=== PATIENT | female | born 1975 | race African-American/Black ===

== ENCOUNTER 2024-10-11 18:49 | Emergency (ER) | payer OTHER ==
--- NOTE | 2024-10-11 19:02 | ER ---
Nurse's Notes [facility] Name: Deirdre Moncada Age: 48 yrs Sex: Female : 1975 Arrival Date: 10/11/2024 Time: 18:49 Bed 12 Private MD: Diagnosis: Cellulitis of left lower limb Presentation: 10/11 19:01 Chief complaint: Patient states: redness to left knee. Coronavirus screen: At this aa5 time, the client does not indicate any symptoms associated with coronavirus-19. Ebola Screen: Patient denies travel to an Ebola-affected area in the 21 days before illness onset. Initial Sepsis Screen: Does the patient meet any 2 criteria? No. Patient's initial sepsis screen is negative. Does the patient have a suspected source of infection? No. Patient's initial sepsis screen is negative. Risk Assessment: Do you want to hurt yourself or someone else? Patient reports no desire to harm self or others. Onset of symptoms was September 2024. 19:01 Acuity: ROBINSON 5 aa5 19:01 Method Of Arrival: Ambulatory aa5 Historical: - Allergies: 19:02 No Known Allergies; aa5 - PMHx: 19:02 None; aa5 - PSHx: 19:02 hysterectomy; aa5 - Immunization history:: Adult Immunizations unknown. - Infectious Disease History:: Denies. - Social history:: Smoking status: Patient denies any tobacco usage or history of. Assessment: 19:08 Neuro: Level of Consciousness is awake, alert, obeys commands, Oriented to person, aa5 place, time, situation. Respiratory: Airway is patent Respiratory effort is even, unlabored, Respiratory pattern is regular, symmetrical. Derm: Skin is dry, Skin is normal, Skin temperature is warm. Vital Signs: 19:01 BP 124 / 74; Pulse 70; Resp 16 S; Temp 98.2(O); Pulse Ox 99% on R/A; Weight 85.73 kg aa5 (R); Height 5 ft. 9 in. (R); 19:01 Body Mass Index 27.91 (85.73 kg, 175.26 cm) aa5 ED Course: 18:52 Patient arrived in ED. mr 18:52 [facility] 18:52 Xavier Schwarz MD is Attending Physician. dr5 19:01 Arm band placed on. aa5 19:02 Triage completed. aa5 19:09 No provider procedures requiring assistance completed. Patient did not have IV access aa5 during this emergency room visit. Administered Medications: No medications were administered Outcome: 19:02 Discharge ordered by . dr5 19:09 Discharged to home ambulatory, aa5 19:09 Condition: stable 19:09 Discharge instructions given to patient, Instructed on discharge instructions, follow up and referral plans. medication usage, Demonstrated understanding of instructions, follow-up care, medications, Prescriptions given X 2, 19:10 Patient left the ED. aa5 Signatures: Yakelin Arshad, Reg Reg mr Farrah Tran, RN RN aa5 Leandro Brown, ASSISTANT FINANCE DIRECTOR-C ASSISTANT FINANCE DIRECTOR-Cdr5 Corrections: (The following items were deleted from the chart) 19:08 19:01 Pulse 70bpm; Resp 16bpm; Spontaneous; Pulse Ox 99% RA; Temp 98.2F Oral; 85.73 kg aa5 Reported; Height 5 ft. 9 in. Reported; BMI: 27.9; aa5
--- NOTE | 2024-10-11 19:02 | EDPHYS ---
Physician Documentation [facility] Name: Deirdre Moncada Age: 48 yrs Sex: Female : 1975 Arrival Date: 10/11/2024 Time: 18:49 Bed 12 Private MD: ED Physician Xavier Schwarz HPI: 10/11 19:44 This 48 yrs old Black Female presents to ER via Ambulatory with complaints of Insect dr5 Bite. 19:44 Patient is a 48-year-old female with no past medical history coming in with pain to dr5 left lower leg right above left kneecap. Patient reports that she was bit by an insect yesterday and pain and swelling is increased. Patient denies fever. Historical: - Allergies: 19:02 No Known Allergies; aa5 - PMHx: 19:02 None; aa5 - PSHx: 19:02 hysterectomy; aa5 - Immunization history:: Adult Immunizations unknown. - Infectious Disease History:: Denies. - Social history:: Smoking status: Patient denies any tobacco usage or history of. ROS: 19:44 Constitutional: as per hpi dr5 Exam: 19:44 Constitutional: This is a well developed, well nourished patient who is awake, alert, dr5 and in no acute distress. Head/Face: Normocephalic, atraumatic. Eyes: Pupils equal round and reactive to light, extra-ocular motions intact. Lids and lashes normal. Conjunctiva and sclera are non-icteric and not injected. Cornea within normal limits. Periorbital areas with no swelling, redness, or edema. Neck: Trachea midline, no thyromegaly or masses palpated, and no cervical lymphadenopathy. Supple, full range of motion without nuchal rigidity, or vertebral point tenderness. No Meningismus. Chest/axilla: Normal chest wall appearance and motion. Nontender with no deformity. No lesions are appreciated. Cardiovascular: Regular rate and rhythm with a normal S1 and S2. Normal PMI, no JVD. No pulse deficits. Abdomen/GI: Soft, non-tender, non-distended Neuro: Awake and alert, GCS 15, oriented to person, place, time, and situation. Cranial nerves II-XII grossly intact. Motor strength 5/5 in all extremities. Sensory grossly intact. Cerebellar exam normal. Normal gait. 19:44 Skin: cellulitis, that is minimal, on the above left knee, Vital Signs: 19:01 BP 124 / 74; Pulse 70; Resp 16 S; Temp 98.2(O); Pulse Ox 99% on R/A; Weight 85.73 kg aa5 (R); Height 5 ft. 9 in. (R); 19:01 Body Mass Index 27.91 (85.73 kg, 175.26 cm) aa5 MDM: 19:02 Medical Screening Exam initiated dr5 19:44 Differential diagnosis: abrasion, contusion, fracture, sprain, Cellulitis. Data dr5 reviewed: vital signs, nurses notes. Care significantly affected by the following Social Determinants of Health: Poor access to healthcare and/or lack of insurance, Poor access to transportation, Problems related to employment. Counseling: I had a detailed discussion with the patient and/or guardian regarding the historical points, exam findings, and any diagnostic results supporting the discharge/admit diagnosis, the presence of at least one elevated blood pressure reading (>120/80) during this emergency department visit, the need for outpatient follow up, for definitive care, a family practitioner, to return to the emergency department if symptoms worsen or persist or if there are any questions or concerns that arise at home. ED course: Patient found to have a developing cellulitis above left knee. Full range of motion of left knee. Will give patient antibiotics with strict ER precautions return if fever develops or swelling worsens while on antibiotics. All questions answered. Patient agreeable to plan and will follow-up primary care doctor this week as well.. Administered Medications: No medications were administered Disposition Summary: 10/11/24 19:02 Discharge Ordered Notes: Location: Home dr5 Condition: Stable dr5 Diagnosis - Cellulitis of left lower limb dr5 Followup: dr5 - With: Emergency Department - When: As needed - Reason: Worsening of condition Followup: dr5 - With: Private Physician - When: 1 - 2 days - Reason: Recheck today's complaints, Continuance of care, Re-evaluation by your physician Discharge Instructions: - Discharge Summary Sheet dr5 - Cellulitis, Adult dr5 Forms: - Medication Reconciliation Form dr5 - Antibiotic Education dr5 - Patient Portal Instructions dr5 - Leadership Thank You Letter dr5 Prescriptions: - Cephalexin 500 mg Oral Capsule - take 1 capsule ORAL route every 12 hours for 10 days; 20 capsule; Refills: 0, dr5 Product Selection Permitted - Doxycycline Hyclate 100 mg Oral Tablet - take 1 tablet ORAL route every 12 hours; 20 tablet; Refills: 0, Product dr5 Selection Permitted Addendum: 10/13/2024 15:34 Co-signature as Attending Physician, Xavier Schwarz MD I agree with the assessment and c ricks plan of care. Signatures: Xavier Schwarz, Farrah Avendano MD, cha, RN RN aa5 Leandro Brown, BINDER SELECTOR-C BINDER SELECTOR-Cdr5
[2024-10-11 19:35] VITALS: BP 124/74; TEMP 98.2; O2SAT 99
== END 2024-10-11 19:10 | disposition home or self-care (01) ==
LOC: ER 18:49
DX: L03.116 Cellulitis of left lower limb (principal)
CPT/HCPCS: 99283

== ENCOUNTER 2024-10-13 18:01 | Emergency (ER) | payer OTHER ==
--- OUTSIDE RECORDS SUMMARY | 2024-10-13 18:03 | XMS REPORT | Clinical Summary ---
Author Name Unknown Organization [facility] Address [address] [place] [address] Care Team Providers Care Supervisor [employer] Name Role Phone Jonny White MD Unavailable [phone] Jonny White MD Unavailable [phone] Estefany Teran MD Primary Care Provider [phone] Allergies No known active allergies Medications * This document contains information received from the source organization and may not represent a complete record from that organization. sertraline (ZOLOFT) 100 mg tablet Take 1 tablet by mouth daily. 1 01/08/2018 Active traMADol (ULTRAM) 50 mg tablet Take 50 mg by mouth every 4 (four) hours as needed. Active ibuprofen (ADVIL,MOTRIN) 600 mg tabletIndicatio ns:Intramural leiomyoma of uterus Take 1 tablet (600 mg) by mouth every 6 (six) hours as needed for moderate pain. 30 tablet 1 04/30/2018 Active Active Problems Problem Noted Date Diagnosed Date Pelvic pain 04/16/2018 Menorrhagia 04/15/2018 Leiomyoma of uterus 04/14/2018 Surgical History Surgery Date Site/Laterality Comments TUBAL LIGATION Medical History Medical History Date Comments Migraine Leiomyoma of uterus Family History Medical History Relation Name Comments Lung cancer Maternal Grandmother Relation Name Status Comments Maternal Grandmother Mother Social History Tobacco Use Types Packs/Day Years Used Date Smoking Tobacco: Some Days Cigarettes Smokeless Tobacco: Former Comments:Only weekends/socia lly Alcohol Use Standard Drinks/Week Comments Yes 0 (1 standard drink = 0.6 oz pur e alcohol) Weekends Comments No Sex and Gender Information Value Date Recorded Sex Assigned at Not on file Legal Sex Female 12:20 PM CDT Gender Identity Not on file Sexual Orientation Not on file Obstetrics History Para Term AB IAB SAB Ectopic Multiple Livin g Live Births 3 3 3 Date Outcome GA Total Labor Labor/2nd/3rd Weight Sex Type Anes PTL Sarah A1 A5 Name Clin Para Para Para Plan of Treatment Health Maintenance Due Date Last Done Comments COVID-19 Vaccine (2023-2 5 season) 2024 Influenza Vaccine (#1) 2024 Pneumococcal Vaccine Aged Out No long er eligible based on patient's age to complete this topic Insurance [facility] PPO POS Care Teams Supervisor [employer] Relationship Specialty Start Date End Date Jonny White MD [address] [place] [address] @[employer] PCP - External Follow Up A 04/08/18 04/08/26 Jonny White MD [address] [place] [address] [email or web address] PCP - External Referring 04/08/18 04/08/26 Estefany Teran MD [address] [place] [address] [email or web address] PCP - General Gynecologic Medical Oncology 04/09/18
[2024-10-13] MEDS ORDERED: LIDOCAINE 2% W/EPI 1:200,000 MPF 20 ML VIAL IM ONE (19:37)
--- NOTE | 2024-10-13 20:03 | ER ---
Nurse's Notes [facility] Name: Deirdre Moncada Age: 48 yrs Sex: Female : 1975 Arrival Date: 10/13/2024 Time: 18:01 Bed 10 Private MD: Diagnosis: Cutaneous abscess of left lower limb;Cellulitis of left lower limb Presentation: 10/13 18:25 Chief complaint: Patient states: was seen here a couple days ago for an abscess on her iw left knee area, was started on abx but it is more red and swollen. Coronavirus screen: At this time, the client does not indicate any symptoms associated with coronavirus-19. Ebola Screen: No symptoms or risks identified at this time. Initial Sepsis Screen: Does the patient meet any 2 criteria? No. Patient's initial sepsis screen is negative. Does the patient have a suspected source of infection? No. Patient's initial sepsis screen is negative. Risk Assessment: Do you want to hurt yourself or someone else? Patient reports no desire to harm self or others. Onset of symptoms was October 11, 2024. 18:25 Method Of Arrival: Ambulatory iw 18:25 Acuity: ROBINSON 3 iw Triage Assessment: 21:08 General: Appears in no apparent distress. uncomfortable, Behavior is calm, cooperative, vc1 appropriate for age. Pain: Complains of pain in left knee. Historical: - Allergies: 18:26 No Known Allergies; iw - Home Meds: 18:26 None [Active]; iw - PMHx: 18:26 None; iw - PSHx: 18:26 hysterectomy; iw - Immunization history:: Adult Immunizations up to date. - Infectious Disease History:: Denies. - Social history:: Smoking status: unknown. Screenin:06 [facility] ED Fall Risk Assessment (Adult) History of falling in the last 3 months, vc1 including since admission No falls in past 3 months (0 pts) Confusion or Disorientation No (0 pts) Intoxicated or Sedated No (0 pts) Impaired Gait No (0 pts) Mobility Assist Device Used No (0 pt) Altered Elimination No (0 pt) Score/Fall Risk Level 0 - 2 = Low Risk Oriented to surroundings, Maintained a safe environment, Educated pt \T\ family on fall prevention, incl call for assistance when getting out of bed. Abuse screen: Denies threats or abuse. Nutritional screening: No deficits noted. Tuberculosis screening: No symptoms or risk factors identified. Vital Signs: 18:25 BP 131 / 89; Pulse 82; Resp 16; Temp 98.3; Pulse Ox 99% on R/A; Weight 85.73 kg; Height iw 5 ft. 9 in. ; Pain 9/10; 18:25 Body Mass Index 27.91 (85.73 kg, 175.26 cm) iw 18:25 Pain Scale: Adult iw ED Course: 18:03 Patient arrived in ED. mr 18:03 Justus Lama MD is Attending Physician. ec2 18:26 Triage completed. iw 18:26 Arm band placed on. iw 20:03 Nicolle Carbajal RN is Primary Nurse. vc1 21:07 Patient has correct armband on for positive identification. Provided Education on: f/u vc1 with PCP. 21:07 No provider procedures requiring assistance completed. Patient did not have IV access vc1 during this emergency room visit. Administered Medications: 20:03 Drug: Lidocaine-Epinephrine Infiltration -2 % (1:100,000) 10 ml Infiltration once; to vc1 bedside {Note: administered by Dr. Lama.} Route: Infiltration; 20:47 Drug: Ketorolac IM 30 mg IM once Route: IM; Site: right deltoid; vc1 21:07 Follow up: Response: No adverse reaction; Marked relief of symptoms vc1 Medication: 21:07 VIS not applicable for this client. vc1 Outcome: 20:02 Discharge ordered by . ec2 21:07 Discharged to home ambulatory, with friend, vc1 21:07 Condition: stable 21:07 Discharge instructions given to patient, Instructed on discharge instructions, follow up and referral plans. wound care, Demonstrated understanding of instructions, follow-up care, wound care, 21:08 Patient left the ED. vc1 Signatures: Yakelin Arshad, Reg Jame mr Stephy Leong RN RN Nicolle Carbajal RN RN vc1 Justus Lama MD MD 2
--- NOTE | 2024-10-13 20:03 | EDPHYS ---
Physician Documentation [facility] Name: Deirdre Moncada Age: 48 yrs Sex: Female : 1975 Arrival Date: 10/13/2024 Time: 18:01 Bed 10 Private MD: ED Physician Justus Lama HPI: 10/13 18:29 This 48 yrs old Black Female presents to ER via Ambulatory with complaints of Abscess. ec2 18:29 Patient arrives today for abscess formation to the left knee. Patient reports that she ec2 was recently diagnosed with cellulitis, prescribed doxycycline and Keflex, reports that she is having some swelling to the knee and the infection has come to a point. Reports some whiteness. Patient reports no fevers, no vomiting, no diarrhea. Reports she is taking her medications, taking them twice.. Historical: - Allergies: 18:26 No Known Allergies; iw - Home Meds: 18:26 None [Active]; iw - PMHx: 18:26 None; iw - PSHx: 18:26 hysterectomy; iw - Immunization history:: Adult Immunizations up to date. - Infectious Disease History:: Denies. - Social history:: Smoking status: unknown. ROS: 18:30 Constitutional: as per hpi ec2 Exam: 18:30 Constitutional: GEN: NAD Head: atraumatic Eyes: EOMI Ears: External ears are ec2 normal. CV: regular rate LUNGS: no respiratory distress ABD: non-distended SKIN: Left knee with erythema, small approximately 1 x 1 cm abscess formation MSK: no evidence of trauma Vital Signs: 18:25 BP 131 / 89; Pulse 82; Resp 16; Temp 98.3; Pulse Ox 99% on R/A; Weight 85.73 kg; Height iw 5 ft. 9 in. ; Pain 9/10; 18:25 Body Mass Index 27.91 (85.73 kg, 175.26 cm) iw 18:25 Pain Scale: Adult iw Procedures: 20:03 I \T\ D: Incision and drainage was performed for an abscess of the left Prepped with ec2 alcohol, Anesthetized with ml's 2% Lidocaine with epinephrine. 2 ml's 2% Lidocaine with epinephrine. Incised with #11 blade. Drained small amount Dressing: sterile 4x4 gauze, the patient tolerated the procedure well. MDM: 18:29 Medical Screening Exam initiated ec2 18:30 Data reviewed: vital signs, nurses notes. ED course: Patient arrives today for ec2 evaluation of possible abscess. Examination yields abscess. Will perform incision and drainage. Will have the patient continue the antibiotics as prescribed.. 20:03 ED course: I performed incision and drainage to the left knee, was able to get a small ec2 amount of purulent drainage out. Will discharge home, instructed her on continued antibiotic therapy. Return precautions given.. Administered Medications: 20:03 Drug: Lidocaine-Epinephrine Infiltration -2 % (1:100,000) 10 ml Infiltration once; to vc1 bedside {Note: administered by Dr. Lama.} Route: Infiltration; 20:47 Drug: Ketorolac IM 30 mg IM once Route: IM; Site: right deltoid; vc1 21:07 Follow up: Response: No adverse reaction; Marked relief of symptoms vc1 Disposition Summary: 10/13/24 20:02 Discharge Ordered Notes: Location: Home ec2 Condition: Stable ec2 Diagnosis - Cutaneous abscess of left lower limb ec2 - Cellulitis of left lower limb ec2 Followup: ec2 - With: Private Physician - When: - Reason: Re-evaluation by your physician Discharge Instructions: - Discharge Summary Sheet ec2 - Cellulitis, Adult ec2 Forms: - Medication Reconciliation Form ec2 - Antibiotic Education ec2 - Prescription Opioid Use ec2 - Patient Portal Instructions ec2 - Leadership Thank You Letter ec2 Signatures: Stephy Leong RN BAMBI Nicolle Carbajal RN RN vc1 Justus Lama MD MD ec2
[2024-10-13] MEDS ORDERED: KETOROLAC 30 MG/ML INJ ONE (20:36)
[2024-10-13 22:24] VITALS: BP 131/89; TEMP 98.3; O2SAT 99
== END 2024-10-13 21:08 | disposition home or self-care (01) ==
LOC: ER 18:01
PROC: 0H9LXZZ Drainage of Left Lower Leg Skin, External Approach (ICD-10-PCS; principal; 2024-10-13)
DX: L03.116 Cellulitis of left lower limb (principal)